=== PATIENT | female | born 1945 | race Caucasian/White ===

== ENCOUNTER 2022-08-09 13:21 | Inpatient (IN) ==
[2022-08-09 14:22] LABS: Basophils % 0.3 % (0.0-0.8); Eosinophils # 0.2 10*3/uL (0.0-0.87); Eosinophils % 1.7 % (0.00-10.9); Hematocrit 37.5 VOL% (35.7-47.0); Hemoglobin 12.1 GM/DL (12.0-16.0); Immature Granulocytes % 0.8 %; Immature Granulocytes Absolute 0.07 #; Lymphocytes # 1.6 10*3/uL (1.4-4.0); Lymphocytes % 19.1 % (21.3-54.2); Mean Corpuscular HGB Conc 32.3 GM/DL (32-36); Mean Corpuscular Volume 88.4 FL (87-102); Mean Platelet Volume 9.6 FL (9.6-12.0); Monocytes # 0.7 10*3/uL (0.11-0.8); Monocytes % 8.3 % (1.7-12.7); Neutrophils % 69.8 % (38.7-73.9); Platelet Count 270 T/CUMM (130-400); Red Blood Count 4.24 MC/CUMM (3.8-5.5); Red Cell Distribution Width 14.4 % (9.3-17.3); White Blood Count 8.6 T/CUMM (4-12)
[2022-08-09 14:34] LABS: Albumin 3.5 G/DL (3.4-5.0); Bilirubin,Total 0.4 MG/DL (0.20-1.00); Calcium 9.5 MG/DL (8.5-10.1); Osmolality,Calculated 277.8 MOS/KG (273-304); Potassium 3.4 MMOL/L (3.5-5.1); Total Protein 6.7 G/DL (6.4-8.2)
[2022-08-09 14:46] LABS: PT Patient Result 11.4 SECS (10.1-12.1)
[2022-08-09] MEDS ORDERED: ATROPINE 1 MG/10 ML SYRINGE IV STA (16:07)
[2022-08-09] MEDS ORDERED: SODIUM CHLORIDE 0.9% 1,000 ML IV STA (16:10)
[2022-08-09] MEDS ORDERED: POTASSIUM CHLORIDE 20 MEQ TABLET PO STA (16:31)
[2022-08-09] MEDS ORDERED: ONDANSETRON 4 MG/2 ML VIAL IV PRN (17:16)
[2022-08-09] MEDS ORDERED: fentaNYL 100 MCG/2 ML VIAL ONE (17:18)
[2022-08-09] MEDS ORDERED: HEPARIN/NACL 0.9% 2 UNITS/ML 1,000 UNIT/500 ML BAG IV ONE (17:18)
[2022-08-09] MEDS ORDERED: MIDAZOLAM 2 MG/2 ML VIAL ONE (17:18)
[2022-08-09 20:19] LABS: Squamous Epithelial Cell,Urine Occasional /HPF (0-10)
[2022-08-09 20:35] LABS: Bilirubin,Urine Negative (Negative); Blood, Urine Negative (Negative); Glucose,Urine (UA) Negative (Negative); Ketones,Urine Negative (Negative); Nitrite,Urine Negative (Negative); Protein,Urine Negative (Negative); Urine Appearance Clear (Clear); Urine Color Yellow (Yellow); Urine Urobilinogen 0.2 eU/dL (<2.0)
[2022-08-09] MEDS ORDERED: INFLUENZA VIRUS VACCINE 0.5 ML SYRINGE IM ONE (21:00)
[2022-08-09] MEDS: ACETAMINOPHEN 325 MG TABLET PO PRN (22:45)
[2022-08-10 07:10] LABS: Basophils % 0.4 % (0.0-0.8); Eosinophils # 0.1 10*3/uL (0.0-0.87); Eosinophils % 1.4 % (0.00-10.9); Hematocrit 35.2 VOL% (35.7-47.0); Hemoglobin 11.3 GM/DL (12.0-16.0); Immature Granulocytes % 0.7 %; Immature Granulocytes Absolute 0.05 #; Lymphocytes # 1.3 10*3/uL (1.4-4.0); Lymphocytes % 17.1 % (21.3-54.2); Mean Corpuscular HGB Conc 32.1 GM/DL (32-36); Mean Corpuscular Volume 89.6 FL (87-102); Mean Platelet Volume 9.4 FL (9.6-12.0); Monocytes # 0.6 10*3/uL (0.11-0.8); Monocytes % 8.4 % (1.7-12.7); Platelet Count 221 T/CUMM (130-400); Red Blood Count 3.93 MC/CUMM (3.8-5.5); Red Cell Distribution Width 14.4 % (9.3-17.3); White Blood Count 7.6 T/CUMM (4-12)
[2022-08-10 07:36] LABS: Calcium 8.7 MG/DL (8.5-10.1); Osmolality,Calculated 281.3 MOS/KG (273-304); Potassium 3.7 MMOL/L (3.5-5.1); Risk Ratio 2.74; Thyroid Stimulating Hormone 3.73 uIU/ml (0.358-3.74); VLDL Cholesterol 27.2 MG/DL
[2022-08-10] MEDS: MONTELUKAST 10 MG TABLET PO SCH (08:48)
[2022-08-10] MEDS: PANTOPRAZOLE 40 MG TABLET PO SCH (08:48)
[2022-08-10] MEDS: ASPIRIN EC 81 MG TABLET PO SCH (08:48)
[2022-08-10] MEDS: ACETAMINOPHEN 325 MG TABLET PO PRN ×2 (08:48→20:18)
[2022-08-10] MEDS: LOSARTAN 50 MG TABLET PO SCH (10:12)
[2022-08-10] MEDS: COENZYME Q10 100 MG CAPSULE PO SCH (10:12)
[2022-08-10] MEDS: ATORVASTATIN 10 MG TABLET PO SCH (10:13)
[2022-08-10] MEDS: MULTIVITAMIN (OCUVITE) TABLET PO SCH (20:18)
[2022-08-11 04:34] LABS: Basophils % 0.3 % (0.0-0.8); Eosinophils # 0.2 10*3/uL (0.0-0.87); Hematocrit 37.1 VOL% (35.7-47.0); Hemoglobin 11.9 GM/DL (12.0-16.0); Immature Granulocytes % 0.5 %; Immature Granulocytes Absolute 0.04 #; Lymphocytes # 1.6 10*3/uL (1.4-4.0); Lymphocytes % 21.2 % (21.3-54.2); Mean Corpuscular HGB Conc 32.1 GM/DL (32-36); Mean Platelet Volume 9.5 FL (9.6-12.0); Monocytes # 0.7 10*3/uL (0.11-0.8); Monocytes % 9.7 % (1.7-12.7); Neutrophils % 66.3 % (38.7-73.9); Platelet Count 211 T/CUMM (130-400); Red Blood Count 4.12 MC/CUMM (3.8-5.5); Red Cell Distribution Width 14.5 % (9.3-17.3); White Blood Count 7.4 T/CUMM (4-12)
[2022-08-11 04:55] LABS: Calcium 8.7 MG/DL (8.5-10.1); Osmolality,Calculated 275.7 MOS/KG (273-304); Potassium 3.7 MMOL/L (3.5-5.1)
[2022-08-11 05:06] LABS: Calcium 8.8 MG/DL (8.5-10.1); Osmolality,Calculated 275.7 MOS/KG (273-304); Potassium 3.4 MMOL/L (3.5-5.1)
[2022-08-11] MEDS ORDERED: ceFAZolin 1,000 MG VIAL IRRIG ONE (06:00)
[2022-08-11] MEDS ORDERED: SODIUM CHLORIDE 0.9% 1,000 ML IV SCH (06:00)
[2022-08-11] MEDS: ASPIRIN EC 81 MG TABLET PO SCH (10:31)
[2022-08-11] MEDS: ATORVASTATIN 10 MG TABLET PO SCH (10:31)
[2022-08-11] MEDS: COENZYME Q10 100 MG CAPSULE PO SCH (10:31)
[2022-08-11] MEDS: PANTOPRAZOLE 40 MG TABLET PO SCH ×2 (10:32→20:54)
[2022-08-11] MEDS: MONTELUKAST 10 MG TABLET PO SCH ×2 (10:32→20:54)
[2022-08-11] MEDS: MULTIVITAMIN (OCUVITE) TABLET PO SCH ×2 (10:32→20:55)
[2022-08-11] MEDS: LOSARTAN 50 MG TABLET PO SCH ×2 (10:33→20:53)
[2022-08-11] MEDS ORDERED: HEPARIN/NACL 0.9% 2 UNITS/ML 1,000 UNIT/500 ML BAG IV ONE (12:46)
[2022-08-11] MEDS ORDERED: ceFAZolin 1,000 MG VIAL ONE (12:47)
[2022-08-11] MEDS ORDERED: BUPIVACAINE 0.25% 50 ML VIAL ONE (12:50)
[2022-08-11] MEDS ORDERED: BUPIVACAINE MPF 0.5% /EPI 30 ML VIAL ONE (12:55)
[2022-08-11] MEDS ORDERED: fentaNYL 100 MCG/2 ML VIAL ONE (12:56)
[2022-08-11] MEDS ORDERED: MIDAZOLAM 2 MG/2 ML VIAL ONE (12:56)
[2022-08-11] MEDS ORDERED: diphenhydrAMINE 50 MG/1 ML VIAL ONE (13:41)
[2022-08-11] MEDS ORDERED: HYDROmorphone 1 MG/1 ML SYRINGE ONE (14:11)
[2022-08-11] MEDS ORDERED: HYDROmorphone 1 MG/1 ML SYRINGE IV ONE (15:45)
[2022-08-11] MEDS: ACETAMINOPHEN 325 MG TABLET PO PRN (20:42)
[2022-08-12] MEDS: ACETAMINOPHEN 325 MG TABLET PO PRN (02:08)
[2022-08-12 05:49] LABS: Basophils % 0.3 % (0.0-0.8); Eosinophils # 0.1 10*3/uL (0.0-0.87); Eosinophils % 1.2 % (0.00-10.9); Hematocrit 38.7 VOL% (35.7-47.0); Hemoglobin 11.9 GM/DL (12.0-16.0); Immature Granulocytes % 0.8 %; Immature Granulocytes Absolute 0.06 #; Lymphocytes # 1.1 10*3/uL (1.4-4.0); Lymphocytes % 14.3 % (21.3-54.2); Mean Corpuscular HGB Conc 30.7 GM/DL (32-36); Mean Corpuscular Volume 95.6 FL (87-102); Mean Platelet Volume 10.6 FL (9.6-12.0); Monocytes # 0.8 10*3/uL (0.11-0.8); Monocytes % 9.9 % (1.7-12.7); Neutrophils % 73.5 % (38.7-73.9); Platelet Count 90 T/CUMM (130-400); Red Blood Count 4.05 MC/CUMM (3.8-5.5); Red Cell Distribution Width 14.6 % (9.3-17.3); White Blood Count 7.7 T/CUMM (4-12)
[2022-08-12 06:06] LABS: Calcium 8.4 MG/DL (8.5-10.1)
[2022-08-12 08:10] VITALS: BP 193/119
[2022-08-12] MEDS: COENZYME Q10 100 MG CAPSULE PO SCH (08:15)
[2022-08-12] MEDS: MONTELUKAST 10 MG TABLET PO SCH (08:15)
[2022-08-12] MEDS: ASPIRIN EC 81 MG TABLET PO SCH (08:15)
[2022-08-12] MEDS: ATORVASTATIN 10 MG TABLET PO SCH (08:15)
[2022-08-12] MEDS: PANTOPRAZOLE 40 MG TABLET PO SCH (08:15)
[2022-08-12] MEDS: MULTIVITAMIN (OCUVITE) TABLET PO SCH (08:16)
[2022-08-12] MEDS: LOSARTAN 50 MG TABLET PO SCH (08:16)
[2022-08-12] MEDS ORDERED: METOPROLOL TARTRATE 50 MG TABLET PO SCH (09:00)
[2022-08-12] MEDS ORDERED: hydroCHLOROthiazide 25 MG TABLET PO SCH (09:00)
== END 2022-08-12 10:38 | disposition home or self-care (01) | DRG 243 ==
LOC: N.ED 13:21 → N.EDINP 17:25 → N.ICU 18:30
PROVIDERS: ADMIT Internal Medicine Cardiovascular Disease; ATTEND Internal Medicine Cardiovascular Disease